=== PATIENT | female | born 1990 | race American Indian/Alaskan Native ===

== ENCOUNTER 2019-04-05 13:31 | Emergency (ER) | payer MEDICAID ==
[2019-04-05 13:43] VITALS: BP 123/72
--- NOTE | 2019-04-05 13:45 | Event Note ---
ED Screening Note Date of service: 04/05/19 Time: 13:42 ED Screening Note: 28 y o female presents with bleeding to the gums today also cc of vaginal burning and pain today after using a vaginal product 4 days ago states LMP 5 days ago This initial assessment/diagnostic orders/clinical plan/treatment(s) is/are subject to change based on patients health status, clinical progression and re- assessment by fellow clinical providers in the ED. Further treatment and workup at subsequent clinical providers discretion. Patient/guardian urged not to elope from the ED as their condition may be serious if not clinically assessed and managed. Initial orders include:
[2019-04-05] MEDS ORDERED: VEETIDS PO ONE (14:47)
[2019-04-05] MEDS ORDERED: FLAGYL PO ONE (14:47)
--- NOTE | 2019-04-05 14:55 | Emergency Department Report ---
ED General Adult HPI - General Chief complaint: Urogenital-Female Stated complaint: RT SIDE TOOTHACHE/VAGINAL ISSUE Time Seen by Provider: 04/05/19 13:42 Source: patient Mode of arrival: Ambulatory Limitations: No Limitations - History of Present Illness Initial comments: Patient reports right molar pain lower, and foul smell from vagina for approximately 1 week. Reports hx of BV and feels vaginal symptoms are similar to past BV. Reports hx dental caries and reports she has not seen a dentist in 8 months. -: Gradual, days(s) (7 approximately) Location: mouth (right lower molar) Radiation: non-radiation Severity scale (0 -10): 1 Quality: aching Consistency: intermittent Improves with: none Worsens with: none Associated Symptoms: denies: confusion, chest pain, cough, diaphoresis, headaches, loss of appetite, malaise, nausea/vomiting, rash, seizure, shortness of breath, syncope, weakness - Related Data Previous Rx's Medication Instructions Recorded Last Taken Type Penicillin Vk [Veetids TAB] 250 mg PO Q6HR #40 tablet 04/05/19 Unknown Rx metroNIDAZOLE [Flagyl TAB] 500 mg PO Q12HR #14 tablet 04/05/19 Unknown Rx Allergies Allergy/AdvReac Type Severity Reaction Status Date / Time No Known Allergies Allergy Unverified 04/05/19 13:35 ED Review of Systems ROS: Stated complaint: RT SIDE TOOTHACHE/VAGINAL ISSUE Other details as noted in HPI Other: GENERAL: No weight change, fatigue, fever, chills, or night sweats SKIN: No changes in skin or hair, no itching, no rashes, no jaundice HEAD: No trauma, headache, or visual changes EYES: No blurriness, tearing, itching, acute visual loss, conjunctival discoloration, or scleral icterus EARS: No hearing loss, tinnitus, vertigo, or earache NOSE: No rhinorrhea, stuffiness, sneezing, itching, or epistaxis MOUTH: Right lower tooth pain. No bleeding gums, hoarseness, sore throat, or swelling CARDIAC: No new murmur, chest pain, palpitations, dyspnea on exertion, orthopnea, PND, or edema RESPIRATORY: No shortness of breath, wheeze, cough, sputum production, hemoptysis, pneumonia, asthma, bronchitis, or emphysema GI: No change in appetite, nausea, vomiting, dysphagia, diarrhea, constipation, hematemesis, melena, hematochezia, or abdominal pain URINARY: No frequency, urgency, polyuria, dysuria, hematuria, or incontinence MUSCULOSKELETAL: No muscle weakness, joint stiffness, decrease in range of motion, redness, swelling NEUROLOGIC: No headache, loss of sensation, numbness, tingling, tremors, weakness, paralysis, seizures HEMATOLOGIC: No anemia, easy bruising, bleeding, petechiae, or purpura ENDOCRINE: No hot or cold intolerance, sweating, polyuria, polydipsia or, polyphagia no thyroid problems PSYCHIATRIC: No change in mood, no anxiety, no depression GENITAL: Female: Vaginal dishcarge. No bleeding, no change in menstrual regularity, no frequency or dysmenorrhea ED Past Medical Hx - Past Medical History Previous Medical History?: No Hx Arthritis: No Hx Asthma: No - Surgical History Past Surgical History?: No Hx Coronary Stent: No Hx Appendectomy: No Hx Breast Surgery: No - Social History Smoking Status: Light Tobacco Smoker Substance Use Type: Alcohol - Medications Home Medications: Home Medications Medication Instructions Recorded Confirmed Last Taken Type Penicillin Vk [Veetids TAB] 250 mg PO Q6HR #40 tablet 04/05/19 Unknown Rx metroNIDAZOLE [Flagyl TAB] 500 mg PO Q12HR #14 tablet 04/05/19 Unknown Rx ED Physical Exam - General Limitations: No Limitations - Other Other exam information: GENERAL: Patient in no acute distress HEAD: Normocephalic, atraumatic EYES: PERRLA, EOM intact, no scleral icterus, no conjunctival hemorrhage, visual wall and acuity wnl NOSE: No tenderness, discharge, sinus tenderness MOUTH: Right lower molar tooth dental caries. No erythema, bleeding, exudate HEART: Regular rate and rhythm, no murmur, S1-S2 are auscultated, pulses are symmetric LUNGS: No respiratory distress. Bilateral breath sounds, No tachypnea, No retractions, No wheezing, rales, rhonchi ABDOMEN: Normal bowel sounds, abdomen soft, no tenderness, no rebound, no guarding, no distention, no masses, no CVA tenderness MUSCULOSKELETAL: Normal joint range of motion, no redness, no swelling, no tenderness NEUROLOGIC: GCS 15, Alert and Oriented x3, Cranial nerves intact, normal sensation, normal strength, normal gait, no cerebellar deficit, NIHSS 0 PSYCHIATRIC: No homicidal or suicidal ideation, no anxiety, no depression, no hallucinations SKIN: Skin is warm and dry, no wounds, no rashes ED Course Vital Signs 04/05/19 13:41 Temperature 98.5 F Pulse Rate 84 Respiratory 18 Rate Blood Pressure 123/72 O2 Sat by Pulse 100 Oximetry ED Medical Decision Making - Medical Decision Making Patient comfortable. Plan treat for presumptive BV and dental caries. Plan discharge with outpatient follow up. Return if any worsening. Critical care attestation.: If time is entered above; I have spent that time in minutes in the direct care of this critically ill patient, excluding procedure time. ED Disposition Clinical Impression: Dental caries Vaginitis Qualifiers: Chronicity: subacute Qualified Code(s): N76.1 - Subacute and chronic vaginitis Disposition: TO HOME OR SELFCARE Is pt being admited?: No Condition: Stable Instructions: Vaginitis (ED), Bacterial Vaginosis (ED), Toothache (ED) Prescriptions: metroNIDAZOLE [Flagyl TAB] 500 mg PO Q12HR #14 tablet Penicillin Vk [Veetids TAB] 250 mg PO Q6HR #40 tablet Referrals: LUCAS JIMENEZ MD [Staff Physician] - 2-3 Days TALAT WHITING MD [Staff Physician] - 2-[address] [facility] [Outside] - 2-3 Days [facility] [Outside] - 2-3 Days Time of Disposition: 14:50
== END 2019-04-05 15:22 | disposition home or self-care (01) ==
LOC: ED 13:31
DX: N76.0 Acute vaginitis (principal); K02.9 Dental caries, unspecified; F17.200 Nicotine dependence, unspecified, uncomplicated; Z79.899 Other long term (current) drug therapy
CPT/HCPCS: 99282

== ENCOUNTER 2021-03-11 00:04 | Emergency (ER) | payer MEDICAID | END 2021-03-11 00:09 | disposition left against medical advice (07) | LOC: ED 00:04 | DX: Z13.30 Encounter for screening examination for mental health and behavioral disorders, unspecified (principal); Z53.21 Procedure and treatment not carried out due to patient leaving prior to being seen by health care provider ==